=== PATIENT | male | born 1995 | race Caucasian/White ===

== ENCOUNTER 2016-08-22 19:29 | Emergency (ER) | payer OTHER ==
[~2016-08-22] VITALS: Ht 185.4 cm; Wt 87.1 kg
[2016-08-22 19:34] VITALS: BP 124/60
[2016-08-22] MEDS ORDERED: HYDR-971 PO (20:36)
[2016-08-22] MEDS ORDERED: NAPR500T PO (20:36)
--- NOTE | 2016-08-22 20:41 | PHYS DOC ---
General Chief Complaint: RIB PAIN Stated Complaint: RIB INJURY Time Seen by MD: 19:30 Source: patient Exam Limitations: no limitations Problems: History of Present Illness Initial Comments Pt is 21/M to ED c/o rib pain. 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 States while on his back another player stepped on his anterior lower rib cage, he c/o severe pain right lower ribs worse with movement/deep breaths. Pt states "I broke a rib" upon arrival, no SOB/hemoptysis. No prearrival treatment pt normally healthy IMM UTD. Occurred: just prior to arrival Severity: severe Injuries/Pain Location: chest Context: other Loss of Consciousness: no loss of consciousness Modifying Factors: improves with immobilization, worse with jarring, worse with movement, improves with pain medication, improves with rest Associated Symptoms: chest pain, other Allergies: Coded Allergies: No Known Drug Allergies (Unverified , 08/22/16) Past Medical History Medical History: other (asthma) Surgical History: noncontributory Social History Smoker: chew Alcohol: none Drugs: none Review of Systems Constitutional: denies chills, denies diaphoresis, denies fever, denies malaise Ears, Nose, Mouth, Throat: denies ear pain, denies ear discharge, denies nose pain, denies epistaxis, denies mouth swelling Respiratory: see HPIdenies cough, denies shortness of breath, denies wheezing Cardiovascular: see HPIdenies palpitations, denies syncope Gastrointestinal: denies diarrhea, denies nausea, denies vomiting Musculoskeletal: denies back pain, denies joint swelling, denies neck pain Psychiatric/Neurological: denies headache, denies numbness, denies paresthesia Physical Exam General Appearance: WD/WN, moderate distress Head: no evidence of injury Eyes: bilateral eye EOMI, bilateral eye PERRL, bilateral eye normal inspection Ears, Nose, Mouth, Throat: hearing grossly normal, no evidence of ENT injury Neck: non-tender, full range of motion Cardiovascular/Respiratory: normal peripheral pulses, no respiratory distress ( TTP right lower ribs just lateral to xiphoid no palpable deform/swell/ecchy) Gastrointestinal: non tender, soft Back: no CVA tenderness, no vertebral tenderness Extremities: normal range of motion, non-tender 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 Will treat conservatively as if fx, ATC states she will have team doctor Dr Dahl see pt Wednesday Departure Time of Disposition: 20:37 Disposition: HOME, SELF-CARE Diagnosis: Chest Contusion, Possible rib fracture Condition: GOOD Patient Instructions: Chest Contusion, [id number], RICE - Routine Care for Injuries, Rib Fracture, [id number] Additional Instructions: As discussed, I feel you have a nondisplaced fracture anterior aspect rib 12. Radiology interpretation will be available to your doctor tomorrow afternoon. RICE, see handout. Rest, no strenuous activity. Keep activity to "pain-free" until orthopedics evaluation. Rx: naprosyn, norco 5mg #20 Take meds with food. Follow up with Dr Dahl, scheduling per ATC. Return to ED with new or changing symptoms. NORBERT STUART DO Aug 22, 2016 20:40
[2016-08-22] MEDS ORDERED: OXYCODONE/APAP 10/325 TABLET. PO ONE (21:00)
[2016-08-22] MEDS ORDERED: ONDANSETRON ODT 4 MG TAB.RAPDIS PO ONE (21:00)
--- NOTE | 2016-08-23 08:51 | RAD ---
Two-view right rib detail series and PA view chest x-ray History: Stepped on during a football game. Severe pain and redness on the right side of the chest. Findings: No acute right rib fracture is evident. Chest x-ray demonstrates no acute lung infiltrate or pleural effusion or pulmonary edema or pneumothorax. The heart size and pulmonary vasculature and mediastinum and both erin are unremarkable. IMPRESSION: No acute right rib fracture.
== END 2016-08-22 20:52 | disposition home or self-care (01) ==
LOC: ER 19:29
DX: S20.211A Contusion of right front wall of thorax, initial encounter (principal); J45.909 Unspecified asthma, uncomplicated; F17.220 Nicotine dependence, chewing tobacco, uncomplicated; W50.0XXA Accidental hit or strike by another person, initial encounter; Y93.61 Activity, american tackle football; Y99.8 Other external cause status; Y92.89 Other specified places as the place of occurrence of the external cause
CPT/HCPCS: 71101; 99284; Q0162